=== PATIENT | female | born 1990 | race Caucasian/White ===

== ENCOUNTER → 2019-01-26 08:47 | Outpatient (CLI) | payer OTHER, SELFPAY ==
[2019-01-26 08:58] LABS: Microscopic, Urine URINE MICROSCOPIC (MICROSCOPIC)
[2019-01-26 13:17] LABS: Basophils % 0.3 % (0.1-2.0); Eosinophils # 0.3 K/mm3 (0.0-0.4); Eosinophils % 4.2 % (0.1-12.0); Hematocrit 39.5 % (37.0-47.0); Hemoglobin 13.3 g/dL (12.2-16.2); Lymphocytes # 1.7 K/mm3 (0.7-4.5); Lymphocytes % 23.8 % (10-50); Mean Corpuscular HGB Conc 33.6 g/dL (31.8-35.4); Mean Corpuscular Hemoglobin 28.2 pg (27.0-31.2); Mean Corpuscular Volume 83.9 fl (81-99); Mean Platelet Volume 8.2 fl (7.4-10.4); Monocytes # 0.3 K/mm3 (0.1-1.0); Monocytes % 4.1 % (1.7-9.3); Neutrophils # 4.9 K/mm3 (1.8-7.8); Neutrophils % 67.7 % (37.0-80.0); Platelet Count 307 K/mm3 (142-424); Red Blood Count 4.71 M/mm3 (4.20-5.40); Red Cell Distribution Width 13.6 % (11.5-17.5); White Blood Count 7.3 K/mm3 (4.8-10.8)
[2019-01-26 13:36] LABS: Appearance,Urine CLEAR (Clear); Bilirubin,Urine Negative (Negative); Blood, Urine TRACE-I (Negative); Color,Urine YELLOW (Yellow); Glucose,Urine (UA) Negative (Negative); Ketones,Urine Negative (Negative); Leukocyte Esterase,Urine Negative (Negative); Nitrate,Urine Negative (Negative); PH,Urine 7.5 (5.0-8.5); Protein,Urine Negative (Negative); Specific Gravity, Urine 1.025 (1.005-1.030); Urobilinogen,Urine 0.2 EU/dl (0.2)
[2019-01-26 13:48] LABS: Bacteria,Urine Trace /lpf
[2019-01-26 13:51] LABS: Erythrocyte Sedimentation Rate 8 mm/hr (0-20)
[2019-01-26 13:57] LABS: Alanine Aminotransferase 19 U/L (12-78); Albumin Level 3.6 gm/dL (3.4-5.0); Albumin/Globulin Ratio 1.2 (1.1-1.8); Alkaline Phosphatase 109 U/L (46-116); Anion Gap 14.3 mEq/L (5-15); Aspartate Amino Transferase 12 U/L (15-37); Bilirubin,Total 0.3 mg/dL (0.2-1.0); Blood Urea Nitrogen 12 mg/dL (7-18); C-Reactive Protein 0.4 mg/dL (0.0-0.9); Calcium 8.8 mg/dL (8.5-10.1); Carbon Dioxide 22 mmol/L (21.0-32.0); Chloride 106 mmol/L (98-107); Estimated Glomerular Filt Rate 99 ml/min (>60); GFR (African American) 120 ML/MIN (>60); Globulin 3.1 gm/dl (1.3-3.2); Glucose 98 mg/dL (74-106); Potassium 4.3 mmoL/L (3.5-5.1); Sodium 138 mmol/L (136-145); Total Protein,Serum 6.7 gm/dL (6.4-8.2)
[2019-01-27 21:15] LABS: Anti-DNA (DS) Ab Qn 11 IU/mL (0-9); Complement C3 145 mg/dL (82-167)
== END ==
PROVIDERS: PCP Nurse Practitioner Family; Visit Provider Internal Medicine
DX: M32.9 Systemic lupus erythematosus, unspecified (principal); R53.83 Other fatigue; R76.8 Other specified abnormal immunological findings in serum; Z79.899 Other long term (current) drug therapy
CPT/HCPCS: 36415; 80053; 81001; 84443; 85025; 85651; 86140; 86161; 86225

== ENCOUNTER 2020-01-24 16:22 | Emergency (ER) | payer OTHER, SELFPAY ==
[2020-01-24 16:37] VITALS: BP 133/89; PULSE 89; RESP 19; TEMP 37; O2SAT 100; BMI 472.3
--- NOTE | 2020-01-24 16:53 | HMH.EDUTC ---
[facility] [place] Disposition Clinical Impression: Viral syndrome Pharyngitis Qualifiers: Pharyngitis/tonsillitis etiology: unspecified etiology Qualified Code(s): J02.9 - Acute pharyngitis, unspecified Disposition: Home, Self-Care Condition on Discharge: Good Instructions: Preventing the Spread of Coronavirus Discharge Instructions Additional Instructions: Drink plenty of fluids. Take tylenol for pain or fever. Take the medications as directed. Follow up with your regular doctor. GO TO THE ER FOR ANY WORSENING SYMPTOMS Prescriptions: Azithromycin [Z-Atul 250mg Tab*] 250 mg PO UD DOSE PK #6 tab Transmission Status: Received by [facility] Referrals: Gayle Rasmussen APRN [Primary Care Provider] - Forms: Work/School Release Time of Disposition: 16:55 Medical Decision Making - Medical Records Medical records reviewed: No: I reviewed the patient's medical records. - Marcin Inquiry Pt receiving controlled substance: No Vital Signs: 01/24/20 16:37 01/24/20 17:09 Temperature 98.6 F 98.6 F Temperature Source Oral Oral Pulse Rate 89 Pulse Rate [Right Brachial] 89 Respiratory Rate 19 19 Blood Pressure 133/89 Blood Pressure [Right Arm] 133/89 Blood Pressure Mean [Right Arm] 103 Blood Pressure Source Automatic Cuff Blood Pressure Source [Right Arm] Automatic Cuff Blood Pressure Position Sitting Blood Pressure Position [Right Arm] Sitting 02 Sat by Pulse Oximetry 100 Oxygen Delivery Method Room Air - Lab Data Lab results reviewed: Yes: I reviewed the patient's lab results. Lab Results 01/24/20 16:36: Strep Scn [facility] Negative Orders (Tests/Meds): ORDERS Category Date Time Status Covid-19 Nasal PCR Sendout Alexis Stat Lab 01/24/20 16:30 Received Strep Screen Confirmation Stat Micro 01/24/20 16:[address] [facility] [place] HPI - General Stated complaint: fever,sore throat,SOB Time Seen by Provider: 01/24/20 16:53 Mode of Arrival: Ambulatory Source of Information: Patient Description of Symptoms (Recalled from Triage Doc. by RN): Pt c/o sore throat, headache, and cough x's 2 days and is wanting covid test HEENT Symptoms (Recalled from RN notes): Yes Resp Symptoms (Recalled from RN notes): Yes Skin Symptoms (Recalled from RN notes): No MS Symptoms (Recalled from RN notes): No Functional Status (Recalled from RN notes): wnl - History of Present Illness Provider Complaint: She c/o sore throat, low grade fever, and body aches for the past 2 days. She works in a [employer] so she has been exposed to many people. - Related Data Previous Rx's Medication Instructions Recorded Azithromycin [Z-Taul 250mg Tab*] 250 mg PO UD DOSE PK #6 tab 01/24/20 Allergies Allergy/AdvReac Type Severity Reaction Status Date / Time Codeine Allergy Unknown Uncoded 03/02/17 14:50 - Worker's Comp Is this a Worker's Comp case?: No [facility] History - Hepatitis A Screen Drug use history?: No High risk sexual behaviors?: No History of sexually transmitted infection?: No Currently employed?: No Childcare worker?: No Do you have indoor plumbing?: Yes Do you have electricity?: Yes Attestation statement:: This patient has been screened for Hepatitis A risk factors. I have reviewed the patient's past medical history: Yes - Social History Alcohol Intake: never Occupational Status: other Housing: house ROS Obtained: Yes All systems reviewed & no additional complaints - Constitutional Constitutional: Reports system reviewed and no additional complaints, except as docu - Eyes Eyes: Reports system reviewed and no additional complaints, except as docu - ENT Ears, Nose, Mouth, and Throat: Reports system reviewed and no additional complaints, except as docu - Cardiovascular Cardiovascular: Reports system reviewed and no additional complaints, except as docu - Respiratory Respiratory: Yes system reviewed and no additional complaints, except as docu - Gastrointestinal Gastrointest
[2020-01-24 17:08] LABS: UTC Strep Screen (Rapid) Negative (Negative)
[2020-01-24 17:09] VITALS: BP 133/89; PULSE 89; RESP 19; TEMP 37; O2SAT 100
[2020-01-26 15:45] LABS: Covid-19 Nasal PCR Sendout Lex Not Detected
== END 2020-01-24 17:10 | disposition home or self-care (01) ==
PROVIDERS: Emergency Provider Nurse Practitioner Family; PCP Nurse Practitioner Family
DX: B34.9 Viral infection, unspecified (principal); J02.9 Acute pharyngitis, unspecified
CPT/HCPCS: 87880; 99202; U0004

== ENCOUNTER 2020-11-11 20:06 | Emergency (ER) | payer OTHER, SELFPAY ==
[2020-11-11 21:40] VITALS: BP 143/98; PULSE 87; RESP 18; TEMP 36.9; O2SAT 98; BMI 44.6
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
[2020-11-11 22:45] VITALS: BP 143/98; PULSE 87; RESP 18; TEMP 36.9; O2SAT 98
--- NOTE | 2020-11-12 11:39 | PC.NURSE ---
Attempted to call pt, not a working number, made contact with father and obtained new number. Made contact with patient and notified of positive results
== END 2020-11-11 22:50 | disposition home or self-care (01) ==
PROVIDERS: Emergency Provider Nurse Practitioner; PCP Nurse Practitioner Family
DX: U07.1 COVID-19 (principal); B34.9 Viral infection, unspecified
CPT/HCPCS: 99202; G0463; U0003

== ENCOUNTER 2021-04-27 08:58 | Emergency (ER) | payer OTHER, SELFPAY ==
--- NOTE | 2021-04-27 09:25 | HMH.EDUTC ---
[facility] [place] Disposition Clinical Impression: Viral syndrome, Exposure to COVID-19 virus Pharyngitis Qualifiers: Pharyngitis/tonsillitis etiology: unspecified etiology Qualified Code(s): J02.9 - Acute pharyngitis, unspecified Disposition: Home, Self-Care Condition on Discharge: Good Instructions: DI for Pharyngitis/Tonsillopharyngitis -- Adult, DI for COVID-19 (Suspected or Confirmed ), Preventing the Spread of Coronavirus Discharge Instructions Additional Instructions: Drink plenty of fluids. Take tylenol or ibuprofen for pain or fever. Take the medications as directed. Follow up with your regular doctor. GO TO THE ER FOR ANY WORSENING SYMPTOMS Quarantine until you know the results of your covid-19 test. Notify your school or workplace of your results and follow their instructions regarding return to work/school. Prescriptions: Brompheniramine/Pseudoephed/Dm [Bromfed Dm Cough Syrup] 5 ml PO Q6HP PRN #240 ml PRN Reason: Cough Transmission Status: Received by [facility]/pharmacy #[id number] methylPREDNISolone [Medrol] 4 mg PO DIRECTED 6 Days #21 packet Transmission Status: Received by [facility]/pharmacy #[id number] Azithromycin [Z-Atul 250mg Tab*] 250 mg PO UD DOSE PK #6 tab Transmission Status: Received by [facility]/pharmacy #[id number] Referrals: Gayle Rasmussen APRN [Primary Care Provider] - Forms: Work/School Release Time of Disposition: 10:01 Medical Decision Making - Medical Records Medical records reviewed: No: I reviewed the patient's medical records. - Marcin Inquiry Pt receiving controlled substance: No Vital Signs: 04/27/21 09:41 Temperature 98.8 F Temperature Source Oral Pulse Rate [Left] 114 H Respiratory Rate 20 Blood Pressure [Right Arm] 149/84 H Blood Pressure Mean [Right Arm] 105 02 Sat by Pulse Oximetry 97 - Lab Data Lab results reviewed: Yes: I reviewed the patient's lab results. Orders (Tests/Meds): ORDERS Category Date Time Status Covid-19 Nasal PCR ([facility]) Routine Lab 04/27/21 09:26 Ordered Strep Scrn Group A (Rapid) Stat Lab 04/27/21 09:30 Ordered [facility] [place] HPI - General Stated complaint: congestion, sinus Time Seen by Provider: 04/27/21 09:25 - History of Present Illness Provider Complaint: She states that she began to feel bad yesterday. She felt worse this morning when she woke up. She has had chilling, fever up to 100.5, scratchy sore throat, body aches, a dry cough - Related Data Previous Rx's Medication Instructions Recorded guaiFENesin [Mucinex 600mg tablet] 1 - 2 tab PO BID PRN #20 tab 11/11/20 Azithromycin [Z-Atul 250mg Tab*] 250 mg PO UD DOSE PK #6 tab 04/27/21 Brompheniramine/Pseudoephed/Dm 5 ml PO Q6HP PRN #240 ml 04/27/21 [Bromfed Dm Cough Syrup] methylPREDNISolone [Medrol] 4 mg PO DIRECTED 6 Days #21 04/27/21 packet Allergies Allergy/AdvReac Type Severity Reaction Status Date / Time codeine Allergy Verified 11/11/20 22:02 [facility] History - Hepatitis A Screen Attestation statement:: This patient has been screened for Hepatitis A risk factors. I have reviewed the patient's past medical history: Yes - Social History Alcohol Intake: never Occupational Status: other Housing: house ROS Obtained: Yes All systems reviewed & no additional complaints - Constitutional Constitutional: Reports as per HPI - Eyes Eyes: Denies eye discharge - ENT Ears, Nose, Mouth, and Throat: Reports as per HPI - Cardiovascular Cardiovascular: Denies chest pain - Respiratory Respiratory: Reports chest congestion, Reports cough, Denies dyspnea, Denies stridor, Denies wheezing - Gastrointestinal Gastrointestingal: Reports: nausea. Denies: abdominal pain, diarrhea, vomiting - Musculoskeletal Musculoskeletal: Denies joint pain - Integumentary/Breasts Skin/Breast: Denies rash Physical Exam - General General appearance: alert, in no apparent distress - Head Head exam: atraumatic, normocephalic, normal inspection - Eye Eye exam: Present:
[2021-04-27 09:41] VITALS: BP 149/84; PULSE 114; RESP 20; TEMP 37.1; O2SAT 97; BMI 43.4
[2021-04-27 10:13] VITALS: BP 149/84; PULSE 114; RESP 20; TEMP 37.1
[2021-04-27 11:04] LABS: Strep Scrn Group A (Rapid) Negative (Negative)
[2021-04-27 19:01] LABS: UTC Influenza A Antigen Negative (Negative)
[2021-04-27 19:02] LABS: UTC Influenza B Antigen Negative (Negative)
== END 2021-04-27 10:14 | disposition home or self-care (01) ==
PROVIDERS: Emergency Provider Nurse Practitioner Family; PCP Nurse Practitioner Family
DX: J02.9 Acute pharyngitis, unspecified (principal); B34.9 Viral infection, unspecified; Z20.822 Contact with and (suspected) exposure to COVID-19
CPT/HCPCS: 87430; 87804; 99203; C9803; G0463; U0003; U0005

== ENCOUNTER → 2021-07-23 15:51 | Outpatient (CLI) | payer OTHER, SELFPAY ==
[2021-07-23 17:08] LABS: Adenovirus,PCR Not Detected (NotDetected); Bordetella Pertussis Not Detected (NotDetected); Chlamydophila Pneumoniae, PCR Not Detected (NotDetected); Coronavirus 19, PCR Not Detected (NotDetected); Coronavirus 229E Not Detected (NotDetected); Coronavirus NL63 Not Detected (NotDetected); Coronavirus OC43 Not Detected (NotDetected); Coronovirus HKU1,PCR Not Detected (NotDetected); Human Metapneumovirus Not Detected (NotDetected); Influenza A, PCR Not Detected (NotDetected); Influenza AH1, 2009 Not Detected (NotDetected); Influenza AH1, PCR Not Detected (NotDetected); Influenza AH3,PCR Not Detected (NotDetected); Influenza B, PCR Not Detected (NotDetected); Mycoplasma Pneumoniae, PCR Not Detected (NotDetected); Parainfluenza 1, PCR Not Detected (NotDetected); Parainfluenza 2, PCR Not Detected (NotDetected); Parainfluenza 3, PCR Not Detected (NotDetected); Parainfluenza 4, PCR Not Detected (NotDetected); Respiratory Syncytial Virus Not Detected (NotDetected); Rhinovirus/Enterovirus Not Detected (NotDetected)
== END ==
PROVIDERS: PCP Nurse Practitioner Family; Visit Provider Nurse Practitioner Family
DX: Z20.822 Contact with and (suspected) exposure to COVID-19 (principal); R05.9 Cough, unspecified
CPT/HCPCS: 87581; 87632; 87798; C9803; U0003; U0005

== ENCOUNTER → 2022-01-30 13:36 | Outpatient (CLI) | payer OTHER, SELFPAY ==
[2022-01-30 18:34] LABS: Basophils # 0.1 K/mm3 (0-0.2); Basophils % 0.7 % (0.1-2.0); Eosinophils # 0.5 K/mm3 (0.0-0.4); Eosinophils % 4.5 % (0.1-12.0); Hematocrit 39.8 % (37.0-47.0); Hemoglobin 13.4 g/dL (12.2-16.2); Lymphocytes # 2.8 K/mm3 (0.7-4.5); Lymphocytes % 27.6 % (10-50); Mean Corpuscular HGB Conc 33.6 g/dL (31.8-35.4); Mean Corpuscular Volume 83.4 fl (81-99); Mean Platelet Volume 8.5 fl (7.4-10.4); Monocytes # 0.4 K/mm3 (0.1-1.0); Monocytes % 3.8 % (1.7-9.3); Neutrophils # 6.3 K/mm3 (1.8-7.8); Neutrophils % 63.3 % (37.0-80.0); Platelet Count 323 K/mm3 (142-424); Red Blood Count 4.77 M/mm3 (4.20-5.40); Red Cell Distribution Width 14.7 % (11.5-17.5)
[2022-01-30 19:26] LABS: Alanine Aminotransferase 20 U/L (12-78); Albumin Level 4.2 g/dl (3.5-5.0); Albumin/Globulin Ratio 1.8 (1.1-1.8); Alkaline Phosphatase 123 U/L (38-126); Anion Gap 16.9 mEq/L (5-15); Aspartate Amino Transferase 24 U/L (14-36); Bilirubin,Total 0.3 mg/dl (0.2-1.3); Blood Urea Nitrogen 14 mg/dl (7-17); Calcium 8.9 mg/dl (8.4-10.2); Carbon Dioxide 25 mmol/L (22.0-30.0); Chloride 103 mmol/L (98-107); Chol/HDL Ratio 5.3 (1-3.5); Cholesterol 175 mg/dl (140-200); Estimated Glomerular Filt Rate 83 ml/min (>60); GFR (African American) 101 ML/MIN (>60); Globulin 2.3 g/dL (1.3-3.2); Glucose 85 mg/dl (74-100); HDL Cholesterol 33 mg/dl (40-60); Potassium 3.9 mmoL/L (3.5-5.1); Sodium 141 mmol/L (136-145); Total Protein,Serum 6.5 g/dl (6.3-8.2); Triglycerides 283 mg/dl (30-150); VLDL Cholesterol 57 mg/dL (0-40)
[2022-01-30 19:37] LABS: Direct LDL Cholesterol 105.05 mg/dL (100-129)
[2022-01-30 19:57] LABS: Thyroid Stimulating Hormone 7.78 uIU/mL (0.465-4.68)
== END ==
PROVIDERS: Visit Provider Nurse Practitioner Family
DX: Z00.00 Encounter for general adult medical examination without abnormal findings (principal); I10 Essential (primary) hypertension; E03.9 Hypothyroidism, unspecified
CPT/HCPCS: 80053; 80061; 84443; 85025

== ENCOUNTER → 2022-04-08 14:40 | Outpatient (CLI) | payer OTHER, SELFPAY ==
[2022-04-08 17:57] LABS: Free T4 (Free Thyroxine) 1.79 ng/dl (0.78-2.19)
== END ==
LOC: LAB.DROPOF 04-09 06:27
PROVIDERS: PCP Nurse Practitioner Family; Visit Provider Nurse Practitioner Family
DX: E03.9 Hypothyroidism, unspecified (principal)
CPT/HCPCS: 84439; 84443

== ENCOUNTER 2024-02-16 14:45 | Outpatient (CLI) | payer BC, SELFPAY | END 2024-02-16 23:59 | disposition home or self-care (01) | LOC: LAB.DROPOF 02-17 09:36 | PROVIDERS: PCP Family Medicine; Visit Provider Family Medicine | DX: E03.9 Hypothyroidism, unspecified (principal) | CPT/HCPCS: 84443 ==

== ENCOUNTER 2024-07-26 08:04 | Emergency (ER) | payer BC, SELFPAY ==
[2024-07-26 08:10] VITALS: BP 150/89; PULSE 88; RESP 16; TEMP 36.9; O2SAT 98; BMI 43.4
--- NOTE | 2024-07-26 08:12 | ED_ITS ---
Discharge Plan Disposition Patient Disposition: Home, Self-Care Prescriptions Prescriptions: No Action cetirizine [All Day Allergy (cetirizine)] 10 mg tablet 10 mg PO DAILY PRN (Reason: allergy symptoms) Qty: 60 3RF fluticasone propionate [Flonase Allergy Relief] 50 mcg/actuation spray,suspension 1 spray intranasal DAILY Qty: 16 2RF Rx Instructions: administer into each nostril albuterol sulfate 90 mcg/actuation HFA aerosol inhaler 1 inh inhalation QID Qty: 6.7 2RF meloxicam 15 mg tablet 15 mg PO DAILY 30 Days Qty: 30 2RF hydroxychloroquine 200 mg tablet 200 mg PO DAILY Qty: 30 0RF levothyroxine 112 mcg tablet 224 mcg PO DAILY 30 Days Qty: 60 2RF Referrals Follow up/Referrals: Evan East MD [Primary Care Provider] - See instructions Activity Restrictions/Add. Instructions Additional Instructions/Restrictions: Please come back to the emergency department if you develop numbness, tingling, weakness of your left leg. Please follow-up with the orthopedic doctors at their clinic, their phone number is [phone]. Clinical Impressions Clinical Impression: Acute left ankle pain Instructions Patient Instructions: DI for Ankle Sprain, DI for Ankle Pain Print Language Print Language: [place] Discharge ED Provider: Nabil Mcarthur Adult HPI General Chief complaint: Extremity Injury, Lower Stated complaint: [id number]- pain/swell L ankle, cant bare weight Time Seen by Provider: 07/26/24 08:12 History of Present Illness HPI narrative: Patient is a 33-year-old female past medical history of hypertension, lupus not on anticoagulation presenting for left ankle pain. Patient said that she was walking her kids into daycare this morning and was walking over a rough kinsey patch and felt her ankle go inward. She was able to bear weight on her toes, but unable to bear weight on the back of her foot. She did not hit her head or lose consciousness and is only complaining of left ankle pain. At this time patient denies numbness, tingling, weakness, chest pain, shortness of breath, abdominal pain, nausea or vomiting Related Data Previous Rx's ?Medication ?Instructions ?Recorded albuterol sulfate 90 mcg/actuation 1 inh inhalation QID #6.7 grams 01/05/23 aerosol inhaler meloxicam 15 mg tablet 15 mg PO DAILY plantar fascitis 30 07/21/23 days #30 tabs cetirizine 10 mg tablet (All Day 10 mg PO DAILY PRN allergy 09/09/23 Allergy (cetirizine)) symptoms #60 tabs fluticasone propionate 50 1 spray intranasal DAILY #16 grams 09/09/23 mcg/actuation nasal spray,suspension (Flonase Allergy Relief) hydroxychloroquine 200 mg tablet 200 mg PO DAILY lupus #30 tabs 10/01/23 levothyroxine 112 mcg tablet 224 mcg (2 x 112 mcg) PO DAILY 30 06/08/24 days #60 tabs Allergies Allergy/AdvReac Type Severity Reaction Status Date / Time codeine Allergy Verified 02/16/24 12:49 [facility] Disclaimer: The information contained in this section may have been updated after the patient was seen, as this information can be updated by other users. Medical History Hypothyroidism Hypertension Lupus Surgical History H/O lithotripsy History of History of tonsillectomy Family History Mother Diabetes Hypertension Social History Smoking Status: Never smoker alcohol intake: never substance use type: denies use current occupational status: employed and other Travel in the last 8 weeks?: None household members: spouse and children housing: house Have you lived/traveled outside [place] in past 30 days?: No Contact w/someone who lives/traveled outside US past 30 days?: No Exposure to someone with infectious disease in past 14 days?: No Do you have a fever (greater than 100.4 F or 38 C)?: No Have you tested positive for COVID-19?: No Exposed to someone with COVID-19 in past 14 days?: No Do you have a sore throat?: No Do you have a cough?: No Do you have any weakness?: No Do you have any diarrhea?: No Are you experiencing any unusual bleeding?: No Do you have any muscle aches/pain?: No Do you have any abdominal pain?: No Are you experiencing loss of taste or smell?: No Other Medical History Have you received the Pneumonia Vaccine: No ROS Obtained: Yes All systems reviewed & no additional complaints except as documented Physical Exam General General appearance: alert and in no apparent distress Head Head exam: atraumatic and normocephalic Eye Eye exam: Present normal appearance ENT ENT exam: Present normal exam Neck Neck exam: Present normal inspection Chest Chest inspection: Present normal inspection and symmetric chest wall rise; Absent tenderness Respiratory Respiratory exam: Present normal lung sounds bilaterally; Absent respiratory distress Cardiovascular Cardiovascular exam: Present regular rate Abdominal Exam Abdominal exam: Present soft; Absent distention, tenderness, guarding or rebound Extremities Exam Extremities exam: Present tenderness (Left lateral ankle, no forefoot tenderness, toes nontender, proximal joints nontender and has full range of motion) and normal capillary refill Neurological Exam Neurological exam: Present alert and oriented X3; Absent motor sensory deficit Medical Decision Making Medical Records Screening: Per USPSTF and CDC recommendations, given the prevalence of disease in our region, it is our hospital?s policy to screen for HIV and viral Hepatitis for all patients aged 18 and over and those with ongoing risk factors. Marcin Inquiry Pt receiving controlled substance: No Vital Signs: 07/26/24 08:10 07/26/24 08:54 07/26/24 09:31 Temperature 98.4 F Temperature Source Oral Pulse Rate 84 Pulse Rate [Right Radial] 88 Respiratory Rate 16 Blood Pressure 146/80 H 121/78 Blood Pressure [Right Arm] 150/89 H Blood Pressure Mean 94 Blood Pressure Mean [Right Arm] 109 Blood Pressure Source Blood Pressure Source [Right Arm] Automatic Cuff Blood Pressure Position Blood Pressure Position [Right Arm] Sitting 02 Sat by Pulse Oximetry 98 99 Oxygen Delivery Method Room Air 07/26/24 10:27 07/26/24 10:31 07/26/24 10:32 Temperature 98.6 F Temperature Source Oral Pulse Rate 85 66 82 Pulse Rate [Right Radial] Respiratory Rate 15 Blood Pressure 128/84 125/75 119/79 Blood Pressure [Right Arm] Blood Pressure Mean Blood Pressure Mean [Right Arm] Blood Pressure Source Automatic Cuff Blood Pressure Source [Right Arm] Blood Pressure Position Sitting Blood Pressure Position [Right Arm] 02 Sat by Pulse Oximetry 100 96 Oxygen Delivery Method Room Air Orders (Tests/Meds): ED MEDICATIONS Discontinued Medications Generic Name Dose Route Start Last Admin Trade Name Freq PRN Reason Stop Dose Admin Acetaminophen 1,000 mg 07/26/24 08:43 07/26/24 08:53 Acetaminophen 500mg Tab PO 07/26/24 08:44 1,000 mg ONCE ONE Administration Ibuprofen 600 mg 07/26/24 08:44 07/26/24 08:53 Ibuprofen 600 Mg Tablet PO 07/26/24 08:45 600 mg ONCE ONE Administration Methocarbamol 500 mg 07/26/24 09:00 07/26/24 08:53 Methocarbamol 500mg Tablet PO 08/25/24 08:59 500 mg BID SIDDHARTHA Administration ORDERS Category Date Time Status Ankle XR - Left minimum 3 Views [XR ankle LT min 3V] Exams 07/26/24 08:43 Completed Stat Foot XR left 2 views [XR foot LT 2V] Stat Exams 07/26/24 08:43 Completed Medical Decision Narrative: In summary, this 33-year-old female presents to the emergency department today with left ankle pain. On initial evaluation patient is hemodynamically stable, well-appearing and in no acute distress. She has swelling to her lateral ankle with tenderness to palpation otherwise intact. She has mildly decreased range of motion due to pain but is able to bear weight on the distal aspect of her foot while standing. Will get x-rays and pain medication. Differential diagnosis includes but is not limited to fracture, dislocation, ligamentous injury. XR personally interpreted demonstrates no obvious dislocation or fracture. On reassessment pain better controlled in no acute distress, patient given crutches and an Neville wrap and given the number to orthopedic follow-up clinic. Patient discharged in stable condition, all questions answered, return precautions given.. Of note, social determinants of health include poor health literacy. Critical Care Critical Care Time Critical Care Time: No
--- NOTE | 2024-07-26 08:43 | XR_ITS ---
FINAL REPORT CLINICAL HISTORY: Left ankle pain, fall COMPARISON: None FINDINGS: LEFT FOOT Two views of the left foot were obtained. There is no acute fracture or dislocation. The joint spaces are well-preserved. There is no acute soft tissue abnormality. IMPRESSION: No acute abnormality identified. Reviewed, Interpreted and Dictated by Yaw Adame MD Transcribed by Alyssa Coughlin Authenticated and [facility]
--- NOTE | 2024-07-26 08:43 | XR_ITS ---
FINAL REPORT CLINICAL HISTORY: Lateral ankle pain, fall COMPARISON: None FINDINGS: LEFT ANKLE 3 views of the left ankle were obtained. There is no acute fracture or dislocation. The mortise is intact. Visualized joint spaces are normally aligned. There is moderate soft tissue edema about the ankle, particularly laterally. There is a small plantar spur. IMPRESSION: Soft tissue edema without acute bony abnormality. Reviewed, Interpreted and Dictated by Yaw Adame MD Transcribed by Alyssa Coughlin Authenticated and [facility]
[2024-07-26] MEDS: IBUPROFEN 600 MG TABLET PO (08:53)
[2024-07-26] MEDS: METHOCARBAMOL 500MG TABLET 500 MG PO (08:53)
[2024-07-26] MEDS: ACETAMINOPHEN 500MG TAB 1000 MG PO (08:53)
[2024-07-26 08:54] VITALS: BP 146/80; PULSE 84; O2SAT 99
[2024-07-26 09:31] VITALS: BP 121/78
[2024-07-26 10:27] VITALS: BP 128/84; PULSE 85; O2SAT 100
[2024-07-26 10:31] VITALS: BP 125/75; PULSE 66; RESP 15; TEMP 37; O2SAT 99
[2024-07-26 10:32] VITALS: BP 119/79; PULSE 82; O2SAT 96
--- NOTE | 2024-07-26 10:38 | PC.NURSE ---
Took patient to the restroom to void
== END 2024-07-26 10:33 | disposition home or self-care (01) ==
PROVIDERS: Emergency Provider Student in an Organized Health Care Education/Training Program; PCP Family Medicine
DX: M25.572 Pain in left ankle and joints of left foot (principal); X50.1XXA Overexertion from prolonged static or awkward postures, initial encounter
CPT/HCPCS: 73610; 73620; 99284

== ENCOUNTER 2024-11-15 08:57 | Outpatient (CLI) | payer BC, SELFPAY ==
--- OUTSIDE RECORDS SUMMARY | 2024-10-06 10:30 | XMS_ITS | Encounter Summary ---
Author Organization [facility] Address [address] [place] [address] Care Team Providers Care Inverter And Clipper Name Role Phone Evan East MD Primary Care Provider [phone] Reason for Visit * Diagnostic Imaging (Routine) - Closed Specialty Diagnoses / Procedures Referred By Contact Referred To Contact Obstetrics and Gynecology Diagnoses Abnormal uterine bleeding (AUB) Procedures US Non-ob Transvaginal Matt Charles MD [address] [address] Phone: tel: fax: [facility] [address] [address] Phone: tel: fax: Referral ID Status Reason Start Date Expiration Date Visits Re quested Visits Authorized [id number] Closed 10/03/2024 01/02/2026 1 1 Encounter Details Date Type Department Care Team (Latest Contact Info) Description 10/06/2024 10:30 AM EDT Ancillary Procedure [facility] [address] [address] Abnormal uterine bleeding (AUB) Social History Tobacco Use Types Packs/Day Years Used Date Smoking Tobacco: Never Smokeless Tobacco: Never Alcohol Use Standard Drinks/Week Comments Never 0 (1 standard drink = 0.6 oz pur e alcohol) AUDIT-C Answer Date Recorded Frequency of Alcohol Consumption Never 05/23/2018 Average Number of Drinks Not on file 019 Frequency of Binge Drinking Not on file 05/13 Comments No Sex and Gender Information Value Date Recorded Sex Assigned at Not on file Legal Sex Female 1:45 PM EDT Gender Identity Not on file Sexual Orientation Not on file documented as of this encounter Plan of Treatment Upcoming Encounters Date Type Department Care Team (Late st Contact Info) Description 05/25/2025 10:30 AM EDT Ancillary Procedure [facility] [address] [facility] [address] [place] [phone] 05/25/2025 10:50 AM EDT Office Visit [facility] [address] [facility] [address] [place] [address] Matt Charles MD [address] [facility] [address] [place] [address] documented as of this encounter Procedures Procedure Name Priority Date/Time Associated Diagnosis Comments US NON-OB TRANSVAGINAL Routine 10/06/2024 10:23 AM EDT Abnormal uterine bleeding (AUB) documented in this encounter Results * US Non-ob Transvaginal (10/06/2024 10:23 AM EDT) Anatomical Region Laterality Modality Body Ultrasound 10/06/2024 10:0 6 AM EDT Narrative 10/06/2024 7:10 PM EDT PAT NAME: KATERINA WATKINS MED REC#: [id number] DA: [id number] PAT GEND: F PAT TYPE: O EXAM IAN: [id number] REF PHYS MATT CHARLES Indication ======== AUB Comparison Studies There are no relevant prior studies to which this study is being compared History ====== Previous Outcomes 1 Para 0 Method ======= Voluson E6, Transvaginal ultrasound examination, 3D ultrasound examination. View: Adequate view Uterus ====== Uterus: Visualized Uterus position: Anteverted Description of uterine malformations: none Myometrium: Homogeneous Endometrium: Uniform Cervix details: Normal Uterus long 103 mm Uterus ap 75 mm Uterus tr 70 mm Uterus Vol 282.8 cm Endometrial thickness, total 3.9 mm Uterine fibroid D1 43.4 mm Uterine fibroid D2 47.7 mm Uterine fibroid D3 42.2 mm Uterine fibroid vol 45.817 cm Uterine fibroids findings: Intramural Uterine fibroid D1 33.0 mm Uterine fibroid D2 26.6 mm Uterine fibroid D3 25.8 mm Uterine fibroid vol 11.829 cm Uterine fibroids findings: Posterior Right Ovary Rt ovary: Visualized Rt ovary D1 29.7 mm Rt ovary D2 28.0 mm Rt ovary D3 21.6 mm Rt ovary Vol 9.4 cm Left Ovary ========= Lt ovary: Visualized Lt ovary D1 42.1 mm Lt ovary D2 22.4 mm Lt ovary D3 23.20 mm Lt ovary Vol 11.5 cm Lt ovarian cyst D1 21.0 mm Lt ovarian cyst D2 16.8 mm Lt ovarian cyst D3 16.5 mm Lt ovarian cyst mean 18.1 mm Lt ovarian cyst vol 3.048 cm Lt ovarian cyst findings: Simple cyst Cul de Sac Normal. No free fluid visualized Impression Uterus anteverted normal size. Endometrial thickness 3.9. 2 fibroids and uterus. 4.3 and 4.2 cm intramural and a another 3.3 x 2.5 cm posterior. Ovaries normal. 2.1 x 1.6 cm simple cyst left ovary. Recommendation Follow-up as clinically indicated. Sanitarian: Shona Marcila RDMS Physician: Matt Charles II, MD, FACOG Electronically signed by: Matt Charles II, MD, FACOG at: 19:10 Procedure Note Matt Charles MD - 10/06/2024 PAT NAME: KATERINA WATKINS [facility] REC#: [id number] DA: [id number] PAT GEND: F PAT TYPE: O EXAM IAN: [id number] REF PHYS MATT CHARLES Indication ======== AUB Comparison Studies There are no relevant prior studies to which this study is beingcompared History ====== Previous Outcomes Gravida1 Para0 Method ======= [place]on E6, Transvaginal ultrasound examination, 3D ultrasoundexamination. View: Adequate view Uterus ====== Uterus:Visualized Uterus position:Anteverted Description of uterine malformations:none Myometrium:Homogeneous Endometrium:Uniform Cervix details:Normal Uterus euzl775 mm Uterus ap75 mm Uterus tr70 mm Uterus Ych930.8 cm Endometrial thickness, total3.9 mm Uterine fibroid D143.4 mm Uterine fibroid D247.7 mm Uterine fibroid D342.2 mm Uterine fibroid vol45.817 cm Uterine fibroids findings:Intramural Uterine fibroid D133.0 mm Uterine fibroid D226.6 mm Uterine fibroid D325.8 mm Uterine fibroid vol11.829 cm Uterine fibroids findings:Posterior Right Ovary Rt ovary:Visualized Rt ovary D129.7 mm Rt ovary D228.0 mm Rt ovary D321.6 mm Rt ovary Vol9.4 cm Left Ovary ========= Lt ovary:Visualized Lt ovary D142.1 mm Lt ovary D222.4 mm Lt ovary D323.20 mm Lt ovary Vol11.5 cm Lt ovarian cyst D121.0 mm Lt ovarian cyst D216.8 mm Lt ovarian cyst D316.5 mm Lt ovarian cyst mean18.1 mm Lt ovarian cyst vol3.048 cm Lt ovarian cyst findings:Simple cyst [place] Sac Normal. No free fluid visualized Impression Uterus anteverted normal size. Endometrial thickness 3.9. 2 fibroids anduterus. 4.3 and 4.2 cm intramural and a another 3.3 x 2.5 cm posterior.Ovaries normal. 2.1 x 1.6 cm simple cyst left ovary. Recommendation Follow-up as clinically indicated. Sanitarian: Shnoa Marcial RDMS Physician: Matt Charles II, MD, FACOG Electronically signed by: Matt Charles II, MD, MICHAELOG at: 9:10 us Matt Charles MD [facility] US ORDERABLES Final Result documented in this encounter Visit Diagnoses Diagnosis Abnormal uterine bleeding (AUB) documented in this encounter Care Teams Inverter And Clipper Relationship Specialty Start Date End Date Evan East MD [address] [place] [address] [place] [address] PCP - General Family Medicine 11/16/23 documented as of this encounter
--- OUTSIDE RECORDS SUMMARY | 2024-10-06 10:40 | XMS_ITS | Encounter Summary ---
Author Organization [facility] Address [address] [place] [address] Care Team Providers Care Manager Of Change Name Role Phone Evan East MD Primary Care Provider [phone] Reason for Referral * Diagnostic Imaging (Routine) - Authorized Specialty Diagnoses / Procedures Referred By Contact Referred To Contact Obstetrics and Gynecology Diagnoses Intramural leiomyoma of uterus Procedures US Non-ob Transvaginal Matt Murphy MD [address] [address] Phone: tel: fax: [facility] [address] [address] Phone: tel: fax: Referral ID Status Reason Start Date Expiration Date V isits Requested Visits Authorized [id number] Authorized 10/06/2024 01/05/2026 1 1 Reason for Visit * Reason Comments Gynecologic Exam Menstrual Problem Encounter Details Date Type Department Care Team (Late st Contact Info) Description 10/06/2024 10:40 AM EDT Office Visit [facility] [facility] [address] [place] [phone] Matt Murphy MD [address] [place] [id number] Intramural leiomyoma of uterus (Primary Dx); Women's annual routine gynecological examination; Abnormal uterine bleeding (AUB) Social History Tobacco Use Types Packs/Day Years Used Date Smoking Tobacco: Never Smokeless Tobacco: Never Tobacco Cessation:Counseling Given: Not Answered Alcohol Use Standard Drinks/Week Comments Never 0 [...] on file documented as of this encounter Last Filed Vital Signs Vital Sign Reading Time Taken Comments Blood Pressure 128/84 10/06/2024 11:17 AM EDT Pulse - - Temperature - - Respiratory Rate - - Oxygen Saturation - - Inhaled Oxygen Concentration - - Weight 108 kg (237 lb 9.6 oz) 10/06/2024 11:17 A M EDT Height 154.9 cm (5' 1 ) 10/06/2024 11:17 AM EDT Body Mass Index 44.89 10/06/2024 11:17 AM EDT documented in this encounter Progress Notes * Claire Medina RN - 10/06/2024 10:40 AM EDTAddended by: CLAIRE MEDINA on: 10/06/2024 04:42 PM Modules accepted: Orders * Matt Murphy MD - 10/06/2024 10:40 AM EDT Images from the original note were not included. Gynecologic Annual Exam Note Gynecologic Exam and Menstrual Problem Subjective HPI Katerina Watkins is a 33 y.o. female who presents for annual well woman exam as a established patient. There were no changes to her medical or surgical history since her last visit.. Patient's last menstrual period was 09/01/2024 (approximate). She reports having irregular periods that occur every 1-3 months. Periods usually last 3 days, her current period has been about 5 weeks. The flow is heavy with golf ball sized clots. She denies dysmenorrhea. Marital Status: . She is sexually active. She has not had new partners.. STD testing recommendations have been explained to thepatient and she does not desire STD testing. US done today: Yes. Findings showed fibroid 4x2 and 3 x 2 cm . The patient would like to discuss the following complaints today: She reports lower abdominal tenderness with palpation. She sometimes has pain and bleeding with intercourse. Her current period started around 09/01/24 and has been bleeding for about 5 weeks consistently. Flow is heavy with large blood clots. She reports feeling fatigue and lightheadedness. Bleeding stopped yesterday, has not had any bleeding today. 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 Results: negative. HPV: negative. Last Completed Pap Smear Upcoming PAP SMEAR (Every 3 Years) Next due on 06/17/2025 06/17/2022 LIQUID-BASED PAP SMEAR WITH HPV GENOTYPING REGARDLESS OF INTERPRETATION (JORGE,COR,MAD) History of abnormal Pap smear: no Gardasil status:completed Family history of uterine, colon, breast, or ovarian cancer: no Performs monthly Self-Breast Exam: yes Exercises Regularly:no Feelings of Anxiety or Depression: no Tobacco Usage?: No Current Outpatient Medications: albuterol sulfate HFA 108 (90 Base) MCG/ACT inhaler, Inhale 2 puffs Every 4 (Four) Hours As Needed for Wheezing., Disp: , Rfl: hydroxychloroquine (PLAQUENIL) 200 MG tablet, Take 1 tablet by mouth 2 (Two) Times a Day., Disp: 180 tablet, Rfl: 1 levothyroxine (SYNTHROID, LEVOTHROID) 200 MCG tablet, Take 1 tablet by mouth Daily., Disp: , Rfl: meloxicam (MOBIC) 15 MG tablet, Take 1 tablet by mouth Daily., Disp: 90 tablet, Rfl: 1 medroxyPROGESTERone (Provera) 10 MG tablet, Take 1 tablet by mouth Daily., Disp: 30 tablet, Rfl: 6 Patient denies the need for medication refills today. OB History 3 Para 1 Term AB 2 Living 1 SAB 2 IAB Ectopic Molar Multiple Live Births Health Maintenance Topic Date Due ANNUAL PHYSICAL Never done Annual Gynecologic Pelvic and Breast Exam 06/19/2023 COVID-19 Vaccine (2023- season) Never done INFLUENZA VACCINE 12/13/2024 PAP SMEAR 06/17/2025 TDAP/TD VACCINES (2 - Td or Tdap) 06/04/2030 HEPATITIS C SCREENING Completed Pneumococcal Vaccine 0-49 Aged Out Past Medical History: Diagnosis Date JADEN positive Anemia Cardiomyopathy Disease of thyroid gland hypothyroidism High risk medication use Hypothyroidism Kidney stone Lupus Lupus anticoagulant positive Recurrent loss, antepartum condition or complication SLE (systemic lupus erythematosus) Past Surgical History: Procedure Laterality Date SECTION 05/17/2014 CYSTOSCOPY W/ LASER LITHOTRIPSY TONSILLECTOMY The additional following portions of the patient's history were reviewed and updated as appropriate: allergies and current medications. Review of Systems Constitutional: Negative. HENT: Negative. Eyes: Negative. Respiratory: Negative. Cardiovascular: Negative. Gastrointestinal: Negative. Endocrine: Negative. Genitourinary: Positive for menstrual problem and vaginal bleeding. Musculoskeletal: Negative. Skin: Negative. Allergic/Immunologic: Negative. Neurological: Negative. Hematological: Negative. Psychiatric/Behavioral: Negative. I have reviewed and agree with the HPI, ROS, and historical information as entered above. Matt Murphy MD Objective BP 128/84 Ht 154.9 cm (61 ) Wt 108 kg (237 lb 9.6 oz) LMP 09/01/2024 (Approximate) BMI 44.89 kg/m?? Physical Exam Vitals and nursing note reviewed. Exam conducted with a manager housekeeping present. Constitutional: Appearance: She is well-developed. HENT: Head: Normocephalic and atraumatic. Neck: Thyroid: No thyroid mass or thyromegaly. Cardiovascular: Rate and Rhythm: Normal rate and regular rhythm. Heart sounds: No murmur heard. Pulmonary: Effort: Pulmonary effort is normal. No retractions. Breath sounds: Normal breath sounds. No wheezing, rhonchi or rales. Chest: Chest wall: No mass or tenderness. Breasts: Right: Normal. No mass, nipple discharge, skin change or tenderness. Left: Normal. No mass, nipple discharge, skin change or tenderness. Abdominal: General: Bowel sounds are normal. Palpations: Abdomen is soft. Abdomen is not rigid. There is no mass. Tenderness: There is no abdominal tenderness. There is no guarding. Hernia: No hernia is present. There is no hernia in the left inguinal area. Genitourinary: Labia: Right: No rash, tenderness or lesion. Left: No rash, tenderness or lesion. Vagina: Normal. No vaginal discharge or lesions. Cervix: No cervical motion tenderness, discharge, lesion or cervical bleeding. Uterus: Normal. Not enlarged, not fixed and not tender. Adnexa: Right: No mass or tenderness. Left: No mass or tenderness. Rectum: No external hemorrhoid. Musculoskeletal: Cervical back: Normal range of motion. No muscular tenderness. Neurological: Mental Status: She is alert and oriented to person, place, and time. Psychiatric: Behavior: Behavior normal. Assessment and Plan Problem List Items Addressed This Visit None Visit Diagnoses Intramural leiomyoma of uterus - Primary Relevant Orders US Non-ob Transvaginal Women's annual routine gynecological examination Abnormal uterine bleeding (AUB) Relevant Medications medroxyPROGESTERone (Provera) 10 MG tablet Will recheck fibroids in 6 mo as was small 2 years ago, start Provera RUG CLEANER HAND annual well woman exam. Reviewed pap guidelines. Recommended use of Vitamin D replacement and getting adequate calcium in her diet. (1500mg) Reviewed monthly self breast exams. Instructed to call with lumps, pain, or breast discharge. Reviewed BMI and weight loss as preventative health measures. RTC in 1 year or PRN with problems Return in about 31 weeks (around 05/11/2025) for us then. aMtt Murphy MD 10/06/2024 documented in this encounter Plan of Treatment Upcoming Encounters Date Type Department Care Team (Late st Contact Info) Description 05/25/2025 10:30 AM EDT Ancillary Procedure [facility] O[facility] [address] [email or web address] [address] [place] [address] 05/25/2025 10:50 AM EDT Office Visit [facility] OBGYN [address] [facility] [address] [place] [address] Matt Murphy MD [address] [facility] [[email or web address] [address] [place] [address] Scheduled Orders Name Type Priority Associated Diagnoses Orde r Schedule US Non-ob Transvaginal Imaging Routine Intramural leiomyoma of uterus Expected: 05/11/2025, Expires: 10/06/2025 documented as of this encounter Procedures Procedure Name Priority Date/Time Associated Diagnosis Comments LIQUID-BASED PAP SMEAR WITH HPV GENOTYPING IF ASCUS, [facility] (JORGE,COR,MAD) Routine 10/06/2024 4:43 PM EDT Women's annual routine gynecological examination documented in this encounter Results * LIQUID-BASED PAP SMEAR WITH HPV GENOTYPING IF ASCUS (JORGE,COR,MAD) (10/06/2024 4:43 PM EDT) Reference Lab Report [facility] [address] [place] [address] or [phone] Sachin Mcintyre M.D., Pier Master PATIENT NAME LABORATORY NO. [address] KATERINA WATKINS. [id number] AGE SEX SSN CLIENT REF # [id number] 33 1990 F [id number] [id number] REQUESTING Rohit [place] [address] MATT MURPHY DATE COLLECTED DATE RECEIVED DATE REPORTED 10/06/2024 10/06/2024 10/07/2024 ThinPrep Pap with Hologic Genius Imaging DIAGNOSIS: Negative for intraepithelial lesion or malignancy Multiple factors can influence accuracy of Pap tests; therefore, screening at regular intervals is necessary for early cancer detection. SPECIMEN ADEQUACY: SATISFACTORY FOR EVALUATION Transformation zone is present. SOURCE OF SPECIMEN: CERVICAL SLIDES: 1 CLINICAL HISTORY: Women's annual routine gynecological examination Abnormal uterine bleeding WHEEL FITTER: PATO PANDEY (ASCP) CPT CODES: 66040 10/07/2024 8:55 AM EDT [facility] ThinPrep Vial Cervix uteri structure / Unknown Collection / Unknown 10/06/2024 4:43 PM EDT 10/06/2024 4:43 PM EDT us Matt Murphy MD PATHOLOGY/CYTOLOGY ORDERABLES F inal Result [facility]
[address] [place] [address], [place] [phone] documented in this encounter Visit Diagnoses Diagnosis Intramural leiomyoma of uterus- Primary Women's annual routine gynecological examination Abnormal uterine bleeding (AUB) documented in this encounter Care Teams Manager Of Change Relationship Specialty Start Date End Date Evan East MD [address] [place] [address] PCP - General Family Medicine 11/16/23 documented as of this encounter
[2024-11-15 19:50] LABS: Hematocrit 35.3 % (37.0-47.0); Hemoglobin 10.0 g/dL (12.2-16.2); Immature Granulocytes % 0.3 %; Mean Corpuscular HGB Conc 28.3 g/dL (31.8-35.4); Mean Corpuscular Hemoglobin 20.9 pg (27.0-31.2); Mean Corpuscular Volume 73.8 fl (81-99); Nucleated Red Blood Cells % 0 %; Platelet Count 348 K/mm3 (142-424); Red Blood Count 4.78 M/mm3 (4.20-5.40); Red Cell Distribution Width-SD 46.1 fL; White Blood Count 7.2 K/mm3 (4.8-10.8)
[2024-11-15 20:33] LABS: Albumin Level 4.0 g/dl (3.5-5.0); Chloride 111 mmol/L (98-107); Potassium 4.5 mmoL/L (3.5-5.1); Sodium 139 mmol/L (136-145)
[2024-11-15 20:36] LABS: Alanine Aminotransferase 18 U/L (12-78); Albumin/Globulin Ratio 1.6 (1.1-1.8); Alkaline Phosphatase 86 U/L (38-126); Anion Gap 8.5 mEq/L (5-15); Aspartate Amino Transferase 23 U/L (14-36); Bilirubin,Total 0.4 mg/dl (0.2-1.3); Blood Urea Nitrogen 20 mg/dl (7-17); Calcium 8.8 mg/dl (8.4-10.2); Carbon Dioxide 24 mmol/L (22.0-30.0); Cholesterol 159 mg/dl (140-200); Creatinine,Serum 0.70 mg/dl (0.52-1.04); Estimated Glomerular Filt Rate 95 ml/min (>60); GFR (African American) 115 ML/MIN (>60); Globulin 2.5 g/dL (1.3-3.2); Glucose 93 mg/dl (74-100); Iron 36 ug/dL (37-170); Total Protein,Serum 6.5 g/dl (6.3-8.2); Triglycerides 78 mg/dl (30-150)
[2024-11-15 20:37] LABS: HDL Cholesterol 33 mg/dl (40-60)
[2024-11-15 20:43] LABS: Total Iron Binding Capacity 418 ug/dL (265-497)
[2024-11-15 20:54] LABS: Triiodothryronine (T3) Uptake 39 % (23.5-40.5)
[2024-11-15 20:55] LABS: Free Thyroxine Index 4.8 ug/dL (5.93-13.13); T4 (Thyroxine) 12.2 ug/dl (5.53-11.0)
[2024-11-15 21:07] LABS: Hemoglobin A1C 5.3 % (4.0-6.0)
[2024-11-15 21:08] LABS: Thyroid Stimulating Hormone 2.95 uIU/mL (0.465-4.68)
[2024-11-15 21:27] LABS: Hepatitis C Ab Qual. W/ RFX NEGATIVE (Negative)
--- OUTSIDE RECORDS SUMMARY | 2024-11-17 08:40 | XMS_ITS | Encounter Summary ---
Author Organization [facility] Address [address] 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 Sending to clinic for review. Additional info: No CMP/BMP in last 12 mo. Please review. 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
--- OUTSIDE RECORDS SUMMARY | 2024-11-17 08:41 | XMS_ITS | Clinical Summary ---
Author Organization [facility] Address [address] [place] [address] Care Team Providers Care Computer Tech Name Role Phone Evan East MD Primary Care Provider [phone]- [phone] Allergies Active Allergy Reactions Criticality Noted Date Comments Codeine Nausea And Vomiting Low 05/23/2018 Childhood allergy. Medications levothyroxine (SYNTHROID, LEVOTHROID) 200 MCG tablet Take 1 tablet by mouth Daily. Active albuterol sulfate HFA 108 (90 Base) MCG/ACT inhaler Inhale 2 puffs Every 4 (Four) Hours As Needed for Wheezing. Active hydroxychloroqui ne (PLAQUENIL) 200 MG tabletIndication s:Lupus,Encounte r for long-term (current) use of high-risk medication Take 1 tablet by mouth 2 (Two) Times a Day. 180 tablet 1 11/16/2023 Active meloxicam (MOBIC) 15 MG tabletIndication s:Lupus,Encounte r for long-term (current) use of NSAIDs Take 1 tablet by mouth Daily. 90 tablet 1 11/16/2023 Active medroxyPROGESTER one (Provera) 10 MG tabletIndication s:Abnormal uterine bleeding (AUB) Take 1 tablet by mouth Daily. 30 tablet 6 10/06/2024 Active Active Problems Problem Noted Date Diagnosed Date Encounter for long-term (cur rent) use of high-risk medication 11/11/2023 Assessment & Plan (11/11/2023 10:31 AM EDT): Continue Plaquenil. Well tolerated and effective. Labs today. We have discussed the side effects of hydroxychloroquine including but not limited to GI upset, rash, photosensitivity, Hematologic and liver abnormalities and ocular abnormalities and need for frequent eye exam for toxicity monitoring, Encounter for long-term (current) use of NSAIDs 11/11/2023 Assessment & Plan (11/11/2023 10:32 AM EDT): Risks of NSAIDs discussed including GI upset, GI bleeding, renal and hepatic risks and the risks of cardiovascular disease and stroke. Warned patient not to take with other NSAIDs including OTC NSAIDs Miscarriage 11/11/2023 Assessment & Plan (11/11/2023 10:35 AM EDT): hx of 1st trimester miscarriage 2018 +lupus anticoagulant. She has seen high-risk OB. They recommend follow-up if she becomes again Hypothyroidism 10/04/2023 Assessment & Plan (11/16/2023 10:05 AM EDT): On levothyroxine and currently stable Anemia 10/04/2023 JADEN positive 10/04/2023 Assessment & Plan (11/11/2023 10:33 AM EDT): neg by ifa; neg nicole Positive lupus anticoagulant. Cardiomyopathy 10/04/2023 Assessment & Plan (11/11/2023 10:34 AM EDT): History of Hypertrophic. Follows with Dr. Pena Hypertension 01/06/2023 Irregular menses 06/17/2022 Lupus 07/07/2018 Assessment & Plan (11/16/2023 10:05 AM EDT): vs sero neg RA; elevated crp; son born may 2014 lupus and ra run in her family +JADEN, +LA, +SSA oral ulcers, arthritis, malar rash neg jaden by ifa Inflammatory arthritis since 2007; Current: plaquenil start 2008-monitoring with [facility] Overall doing well in improved on Plaquenil BID. Low disease activity. She does occasionally have oral ulcers. Could trial colchicine if persistent. Plaquenil refill provided. Well tolerated. Plaquenil eye exam yearly recommended with Dr[facility] Continue meloxicam as needed for joint pains The patient is doing satisfactorily on the current medical therapy. Check labs today RTC 4-6 months Maternal morbid obesity, antepartum 07/07/2018 Previous section 07/07/2018 Encounters Date Type Department Care Team Description 10/06/2024 10:40 AM EDT Office Visit [facility] [address] [place] [address] Dimas Charles MD Intramural leiomyoma of uterus (Primary Dx); Women's annual routine gynecological examination; Abnormal uterine bleeding (AUB) 10/06/2024 10:30 AM EDT Ancillary Procedure [facility] [address] [place] [address] Abnormal uterine bleeding (AUB) 10/06/2024 Travel from Last 3 Months Immunizations Immunization Administration Dates Next Due Influenza, Unspecified 12/18/2019 Family History Medical History Relation Name Comments Arthritis Maternal Grandfather Diabetes Mother [place] Breast cancer Neg Hx Colon cancer Neg Hx Ovarian cancer Neg Hx Uterine cancer Neg Hx Relation Name Status Comments Maternal Grandfather Mother [place] Social History Tobacco Use Types Packs/Day Years [...] on file Sexual Orientation Not on file Last Filed Vital Signs Vital Sign Reading Time Taken Comments Blood Pressure 128/84 10/06/2024 11:17 AM EDT Pulse 116 11/16/2023 9:50 AM EDT Temperature 36.6 C (97.9 F) 11/16/2023 9:50 AM EDT Respiratory Rate 18 05/23/2018 10:44 AM EDT Oxygen Saturation 98% 05/23/2018 10:44 AM EDT Inhaled Oxygen Concentration - - Weight 108 kg (237 lb 9.6 oz) 10/06/2024 11:17 A M EDT Height 154.9 cm (5' 1 ) 10/06/2024 11:17 AM EDT Body Mass Index 44.89 10/06/2024 11:17 AM EDT Plan of Treatment Upcoming Encounters Date Type Department Care Team (Late st Contact Info) Description 05/25/2025 10:30 AM EDT Ancillary Procedure [facility] [address] [place] [address] [place] [phone] 05/25/2025 10:50 AM EDT Office Visit [facility] [address] [place] [address] Dimas Charles MD [address] [place] [address] Health Maintenance Due Date Last Done Comments ANNUAL PHYSICAL 07/07/2018 COVID-19 Vaccine (2023-2 5 season) 2024 INFLUENZA VACCINE 12/13/2024 06/04/2020, 12/18/2019 Annual Gynecologic Pelvic an d Breast Exam 10/07/2025 10/06/2024 PAP SMEAR 10/07/2027 10/06/2024, 06/17/2022 TDAP/TD VACCINES (2 - Td or Tdap) 06/04/2030 06/04/2020 HEPATITIS C SCREENING Completed 02/10/2024 Pneumococcal Vaccine 0-49 Aged Out No longer eligible based on patient's age to complete this topic Procedures Procedure Name Priority Date/Time Associated Diagnosis Comments LIQUID-BASED PAP SMEAR WITH HPV GENOTYPING IF ASCUS, [facility] (JORGE,COR,MAD) Routine 10/06/2024 4:43 PM EDT Women's annual routine gynecological examination US NON-OB TRANSVAGINAL Routine 10/06/2024 10:23 AM EDT Abnormal uterine bleeding (AUB) from Last 3 Months Results * LIQUID-BASED PAP SMEAR WITH HPV GENOTYPING IF ASCUS (JORGE,COR,MAD) (10/06/2024 4:43 PM EDT) Reference Lab Report [facility] [address] [place] [address] or [phone] Sachin Mcintyre M.D., Apprentice Funeral Director PATIENT NAME LAB[facility]ATORY NO[facility] [address] SALOMÓN WATKINS. [id number] AGE SEX SSN CLIENT REF # [facility] 1990 F [id number] [address] [facility] [id number] REQUESTING Sammie. [place] [address] DIMAS CHARLES DATE COLLECTED DATE RECEIVED DATE REPORTED 10/06/2024 10/06/2024 10/07/2024 ThinPrep Pap with Votig[employer] Genius [facility] DIAGNOSIS: Negative for intraepithelial lesion or malignancy Multiple factors can influence accuracy of Pap tests; therefore, screening at regular intervals is necessary for early cancer detection. SPECIMEN ADEQUACY: SATISFACTORY FOR EVALUATION Transformation zone is present. SOURCE OF SPECIMEN: CERVICAL SLIDES: 1 CLINICAL HISTORY: Women's annual routine gynecological examination Abnormal uterine bleeding PTA: PATO PANDEY (ASCP) CPT CODES: 09602 10/07/2024 8:55 AM EDT [facility] ThinPrep Vial Cervix uteri structure / Unknown Collection / Unknown 10/06/2024 4:43 PM EDT 10/06/2024 4:43 PM EDT us Dimas Charles MD PATHOLOGY/CYTOLOGY ORDERABLES F inal Result [facility]
[address] [place] [address], * US Non-ob Transvaginal (10/06/2024 10:23 AM EDT) Anatomical Region Laterality Modality Body Ultrasound 10/06/2024 10:0 6 AM EDT Narrative 10/06/2024 7:10 PM EDT PAT NAME: SALOMÓN WATKINS [facility] REC#: [id number] DA: 1990 PAT GEND: F PAT TYPE: O EXAM IAN: [id number] REF PHYS DIMAS CHARLES Indication ======== AUB Comparison Studies There [...] left ovary. Recommendation Follow-up as clinically indicated. Woodwork Salvage Inspector: Shona Marcial RDMS Physician: Dimas Charles II, MD, FACOG Electronically signed by: Dimas Charles II, MD, FACOG at: 19:10 Procedure Note Dimas Charles MD - 10/06/2024 PAT NAME: SALOMÓN WATKINS MED REC#: [id number] DA: 1990 PAT GEND: F PAT TYPE: O EXAM IAN: [id number] REF PHYS DIMAS CHARLES Indication ======== AUB Comparison Studies There are no relevant prior studies to which this study is beingcompared History ====== Previous Outcomes Gravida1 Para0 Method ======= [place]on E6, Transvaginal ultrasound examination, 3D ultrasoundexamination. View: Adequate view Uterus ====== Uterus:Visualized Uterus position:Anteverted Description of uterine malformations:none Myometrium:Homogeneous Endometrium:Uniform Cervix details:Normal Uterus llko373 mm Uterus ap75 mm Uterus tr70 mm Uterus Gbe516.8 cm Endometrial thickness, total3.9 mm Uterine fibroid [...] left ovary. Recommendation Follow-up as clinically indicated. Woodwork Salvage Inspector: Shona Marcial RDNM Physician: Dimas Charles II, MD, FACOG Electronically signed by: Dimas Charles II, MD, FACOG at: 2519:10 Dimas Charles MD [facility] ORDERABLES Final Result from Last 3 Months Insurance [employer] [facility] PPO Care Teams Computer Tech Relationship Specialty Start Date End Date Evan East MD [address] [place] [address] [place] [address] PCP - General Family Medicine 11/16/23
--- OUTSIDE RECORDS SUMMARY | 2024-11-17 08:41 | XMS_ITS | Encounter Summary ---
Author Organization [facility] Address [address] [place] [address] Care Team Providers Care Navy Seal Name Role Phone Evan East MD Primary Care Provider [phone]- [phone] Encounter Details Date Type Department Care Team (Latest Contact Info) Description 10/06/2024 Travel Social History Tobacco Use Types Packs/Day Years [...] Description 05/25/2025 10:30 AM EDT Ancillary Procedure [facility] [address] [facility] [address] [place] [phone] 05/25/2025 10:50 AM EDT Office Visit [facility] [address] [facility] [address] [place] [address] Matt Murphy MD [address] [facility] [address] [place] [phone] documented as of this encounter Visit Diagnoses Not on filedocumented in this encounter Care Teams Navy Seal Relationship Specialty Start Date End Date Evan East MD [address] [place] [address] [place] [address] PCP - General Family Medicine 11/16/23 documented as of this encounter
--- OUTSIDE RECORDS SUMMARY | 2024-11-17 08:41 | XMS_ITS | Clinical Summary ---
Author Organization [facility] Address [address] [place] [address] Care Team Providers Care Consumer Relations Complaint Clerk Name Role Phone Kassie Beltran Primary Care Provider Un available Allergies Active Allergy Reactions Criticality Noted Date Comments Codeine Unknown - Patient st ates they do not know rxn details Low 05/23/2018 Pt states she doesn't recall. Childhood allergy. Medications albuterol 108 (90 Base) MCG/ACT inhaler Inhale 2 puffs. Active hydroxychloroqui ne (Plaquenil) 200 MG tablet Take by mouth 1 (one) time each day. 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 01/05/2017 Other forms of systemic lupus erythematosus 12/14 Positive antinuclear antibody 01/05/2017 Immunizations Immunization Administration Dates Next Due Influenza, injectable, MDCK, preservative free, quadrivalent 06/04/2020 Tdap 06/04/2020 Social History Tobacco Use Types Packs/Day Years Used Date Smoking Tobacco: Never Smokeless Tobacco: Never Tobacco Cessation:Counseling Given: Not Answered Comments Unknown Sex and Gender Information Value Date Recorded Sex Assigned at Not on file Legal Sex Female 6:41 PM EDT Gender Identity Not on file Sexual Orientation Not on file Last Filed Vital Signs Vital Sign Reading Time Taken Comments Blood Pressure 114/76 02/10/2024 10:28 AM EST Pulse 85 02/10/2024 10:28 AM EST Temperature 36.6 C (97.8 F) 02/10/2024 6:27 AM EST Respiratory Rate 20 02/10/2024 10:28 AM EST Oxygen Saturation 98% 02/10/2024 10:28 AM EST Inhaled Oxygen Concentration - - Weight 104 kg (230 lb) 02/10/2024 6:46 AM EST Height 154.9 cm (5' 1 ) 02/10/2024 6:46 AM EST Body Mass Index 43.46 02/10/2024 6:46 AM EST Plan of Treatment Health Maintenance Due Date Last Done Comments [facility]-Depression Screening 1990 [facility]-Infant/Child/Adol SDOH Screenings 1990 [facility]-Varicella Vaccines (1 of 2 - 13+ 2-dose series) 2002 [facility]- SDOH Screenings 11/05/2007 [facility]-Adult SDOH Screenings 11/05/2007 [facility]-Hepatitis B Vaccines (1 of 3 - 19+ 3-dose series) 2008 HPV Vaccines (1 - 3-dose SCD M series) 2016 [facility]-HPV/Cotest 11/05/2019 [id number]-[id number]-17 Vaccine (1 - 2023- season) 2023 [facility]-Influenza Vaccine (#1) 11/13/202406/04, 12/18/2019 [facility]-Cervical Cancer Screening 06/17/2025 [facility]-Pap Smear 06/17/2025 06/17/2022 [facility]-DTaP,Tdap,and Td Vaccine s (2 - Td or Tdap) 06/04/2030 06/04/2020 [facility]-Zoster Vaccines (1 of 2) 11/05/2039 [facility]-Obesity Intervention Completed 023, 06/17/2022 [facility]-HIV Screening Completed 02/10/2024 [facility]-Hepatitis C Screening Completed 02/10/2024 [facility]-HIB Vaccines Aged Out No longer e ligible based on patient's age to complete this topic [facility]-Hepatitis A Vaccines Aged Out No longer eligible based on patient's age to complete this topic [facility]-IPV Vaccines Aged Out No longer e ligible based on patient's age to complete this topic [facility]-Pneumococcal Vaccine: Pediatrics (0 to 5 Years) and At-Risk Patients (6 to 49 Years) Aged Out No longer eligible b ased on patient's age to complete this topic [facility]-Rotavirus Vaccines Aged Out No lo nger eligible based on patient's age to complete this topic Procedures Procedure Name Priority Date/Time Associated Diagnosis Comments HEPATITIS C ANTIBODY - ED W/REFLEX TO HCV QUANT PCR STAT 02/10/2024 6:45 AM EST ED HIV 1/2 ANTIBODY/ANTIGEN SCREEN WITH REFLEX TO HIV I/II DIFFERENTIATION STAT 02/10/2024 6:45 AM EST from Last 3 Months or Most Recently Relevant to Health Maintenance Results * ED HIV 1/2 Antibody/Antigen Screen w/Reflex to HIV 1/2 Differentiation (02/10/2024 6:45 AM EST) HIV 1 & 2 Antibody/Antigen Screen Non Reactive Non Reactive 02/10/2024 7:49 AM EST [facility] Comment:Screening for HIV 1 & 2 antibodies, and P24 antigen is NONREACTIVE. No confirmatory testing is required. Blood Venous blood specimen / Unknown Venipuncture / Unknown 02/10/2024 6:45 AM EST 02/10/2024 6:58 AM EST us Ehsan Escobar MD LAB BLOOD ORDERABLES Final Resu lt [facility] [address] [place] [address] * Hepatitis C Antibody - ED (02/10/2024 6:45 AM EST) Hepatitis C Antibody Negative Negative 02/10/2024 7:49 AM EST [facility] Blood Venous blood specimen / Unknown Venipuncture / Unknown 02/10/2024 6:45 AM EST 02/10/2024 6:58 AM EST us Ehsan Escobar MD LAB BLOOD ORDERABLES Final Resu lt Performing Organization Address City/[facility] Co de Phone Number [facility] [address] [place] [address] from Last 3 Months or Most Recently Relevant to Health Maintenance Care Teams Consumer Relations Complaint Clerk Relationship Specialty Start Date End Date Kassie Beltran [address] [place] [address] PCP - General 01/06/23
[2024-11-17 09:14] LABS: Hepatitis B Surface Antigen Negative (Negative)
== END 2024-11-15 23:59 ==
LOC: LAB.DROPOF 11-17 08:26
PROVIDERS: PCP Family Medicine; Visit Provider Family Medicine
DX: E06.3 Autoimmune thyroiditis (principal); I10 Essential (primary) hypertension; E66.9 Obesity, unspecified; Z86.2 Personal history of diseases of the blood and blood-forming organs and certain disorders involving the immune mechanism; Z11.4 Encounter for screening for human immunodeficiency virus [HIV]; Z11.59 Encounter for screening for other viral diseases
CPT/HCPCS: 80053; 80061; 83036; 83540; 83550; 84436; 84443; 84479; 85025; 86803; 87340; 87389

== ENCOUNTER 2025-03-05 10:14 | Outpatient (CLI) | payer BC, SELFPAY ==
[2025-03-05 19:22] LABS: Hematocrit 37.2 % (37.0-47.0); Hemoglobin 11.2 g/dL (12.2-16.2); Immature Granulocytes % 0.6 %; Mean Corpuscular HGB Conc 30.1 g/dL (31.8-35.4); Mean Corpuscular Hemoglobin 21.9 pg (27.0-31.2); Mean Corpuscular Volume 72.7 fl (81-99); Nucleated Red Blood Cells % 0 %; Platelet Count 329 K/mm3 (142-424); Red Blood Count 5.12 M/mm3 (4.20-5.40); Red Cell Distribution Width-SD 45.1 fL; White Blood Count 9.0 K/mm3 (4.8-10.8)
[2025-03-05 19:59] LABS: Albumin Level 4.3 g/dl (3.5-5.0)
[2025-03-05 20:00] LABS: Chloride 104 mmol/L (98-107); Potassium 4.4 mmoL/L (3.5-5.1); Sodium 139 mmol/L (136-145)
[2025-03-05 20:02] LABS: Alanine Aminotransferase 17 U/L (12-78); Anion Gap 15.4 mEq/L (5-15); Aspartate Amino Transferase 21 U/L (14-36); Blood Urea Nitrogen 14 mg/dl (7-17); Carbon Dioxide 24 mmol/L (22.0-30.0); Creatinine,Serum 0.80 mg/dl (0.52-1.04); Estimated Glomerular Filt Rate 82 ml/min (>60); GFR (African American) 99 ML/MIN (>60)
[2025-03-05 20:03] LABS: Albumin/Globulin Ratio 1.7 (1.1-1.8); Alkaline Phosphatase 118 U/L (38-126); Bilirubin,Total 0.4 mg/dl (0.2-1.3); Calcium 9.3 mg/dl (8.4-10.2); Cholesterol 148 mg/dl (140-200); Globulin 2.5 g/dL (1.3-3.2); HDL Cholesterol 34 mg/dl (40-60); Total Protein,Serum 6.8 g/dl (6.3-8.2); Triglycerides 135 mg/dl (30-150)
[2025-03-05 20:22] LABS: Glucose 48 mg/dl (74-100)
[2025-03-05 20:35] LABS: Thyroid Stimulating Hormone 1.21 uIU/mL (0.465-4.68)
--- OUTSIDE RECORDS SUMMARY | 2025-03-06 12:10 | XMS_ITS | Clinical Summary ---
Author Organization [facility] Address [address] [place] [address] Care Team Providers Care Rn Circulating Name Role Phone Evan East MD Primary Care Provider [phone] Allergies Active Allergy Reactions Criticality Noted Date [...] On levothyroxine and currently stable Anemia 10/04/2023 ELYSIA positive 10/04/2023 Assessment & Plan (11/11/2023 10:33 [...] lupus and ra run in her family +ELYSIA, +LA, +SSA oral ulcers, arthritis, malar rash neg elysia by ifa Inflammatory arthritis since 2007; Current: [...] morbid obesity, antepartum 07/07/2018 Previous section 07/07/2018 Immunizations Immunization Administration Dates Next Due Influenza, [...] Care Team (Late st Contact Info) Description 05/24/2025 9:45 AM EDT Office Visit [facility] RHEUMATOLOGY [address] [phone] Russel Finn, DISTRIBUTOR PUBLICATIONS [address] [address] Health Maintenance Due Date Last Done Comments ANNUAL PHYSICAL 07/07/2018 INFLUENZA VACCINE 10/13/2024 06/04/2020, 12/18/2019 Annual Gynecologic Pelvic an d [...] PM EDT Women's annual routine gynecological examination from Last 3 Months or Most Recently Relevant to Health Maintenance Results * LIQUID-BASED PAP SMEAR WITH HPV GENOTYPING IF ASCUS (JORGE,COR,MAD) (10/06/2024 4:43 PM EDT) Reference Lab Report [facility] [address] [place] [address] or [phone] Sachin Mcintyre M.D., Abstract Manager PATIENT NAME LABORATORY [address] KATERINA WATKINS. [id number] AGE SEX SSN CLIENT REF # [facility] 33 1990 F [id number] REQUESTING MVivien [place] [address] MATT CHARLES DATE COLLECTED DATE RECEIVED DATE REPORTED 10/06/2024 10/06/2024 10/07/2024 ThinPrep Pap with Pin or Peggic Genius Imaging DIAGNOSIS: Negative for intraepithelial lesion or malignancy Multiple factors can influence accuracy of Pap tests; therefore, screening at regular intervals is necessary for early cancer detection. SPECIMEN ADEQUACY: SATISFACTORY FOR EVALUATION Transformation zone is present. SOURCE OF SPECIMEN: CERVICAL SLIDES: 1 CLINICAL HISTORY: Women's annual routine gynecological examination Abnormal uterine bleeding GUM ROLLING MACHINE OPERATOR: PATO PANDEY (ASCP) CPT CODES: [id number] 10/07/2024 8:55 AM EDT [facility] ThinPrep Vial Cervix uteri structure / Unknown Collection / Unknown 10/06/2024 4:43 PM EDT 10/06/2024 4:43 PM EDT us Matt Charles MD PATHOLOGY/CYTOLOGY ORDERABLES F inal Result [facility]
[address] [place] [address], from Last 3 Months or Most Recently Relevant to Health Maintenance Insurance [employer] PPO [employer] P[employer] Care Teams Rn Circulating Relationship Specialty Start Date End Date Evan East MD [address] [place] [address] PCP - General Family Medicine 11/16/23
--- OUTSIDE RECORDS SUMMARY | 2025-03-06 12:10 | XMS_ITS | Encounter Summary ---
Author Organization [facility] Address [address] 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
--- OUTSIDE RECORDS SUMMARY | 2025-03-06 12:10 | XMS_ITS | Clinical Summary ---
Author Organization [facility] Address [address] 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 Other forms of systemic lupus erythematosus 12/14 Positive antinuclear antibody 01/05/2017 Resolved Problems Problem Noted Date Diagnosed Date Resolved Date Exposure to COVID-19 virus 01/06/2023 01/06/2023 0 12/03/2024 Pharyngitis 01/06/2023 01/06/2023 12/03/2024 Sinusitis 01/06/2023 01/06/2023 12/03/2024 Other fatigue 06/17/2022 12/03/2024 Snores 06/17/2022 12/03/2024 Immunizations Immunization Administration Dates Next Due Influenza, [...] Date Last Done Comments [facility]-Depression Screening 1989 [facility]-/Child/Adol SDOH Screenings 1989 [facility]-Varicella Vaccines (1 of 2 - 13+ 2-dose series) 2002 [facility]- SDOH Screenings 11/05/2007 [facility]-Adult SDOH Screenings 11/05/2007 [facility]-Hepatitis B Vaccines (1 of 3 - 19+ 3-dose series) 2008 [facility]-HPV/Cotest 11/05/2019 [id number] Vaccine (1 - 2024- season) 2024 [facility]-Influenza Vaccine (#1) 11/13/202406/04, 12/18/2019 [facility]-Cervical Cancer Screening 06/17/2025 [facility]-Pap Smear 06/17/2025 06/17/2022 [facility]-DTaP,Tdap,and Td Vaccine s (2 - Td or Tdap) 06/04/2030 06/04/2020 [facility]-Zoster Vaccines (1 of 2) 11/05/2039 [facility]-Obesity Intervention Completed 023, 06/17/2022 [facility]-HIV Screening Completed 02/10/2024 [facility]-Hepatitis C Screening Completed 02/10/2024 HPV Vaccines (No Doses Required) Completed [facility]-HIB Vaccines Aged Out No longer e [...] Reactive Non Reactive 02/10/2024 7:49 AM EST [facility] Comment:Screening for HIV 1 & 2 antibodies, and P24 antigen is NONREACTIVE. No confirmatory testing is required. Blood Venous blood specimen / Unknown Venipuncture / Unknown 02/10/2024 6:45 AM EST 02/10/2024 6:58 AM EST us Ehsan Escobar MD LAB BLOOD ORDERABLES Final Resu lt [facility] [address] [place] [address] * Hepatitis C Antibody - ED (02/10/2024 6:45 AM EST) Hepatitis C Antibody Negative Negative 02/10/2024 7:49 AM EST [facility] Blood Venous blood specimen / Unknown Venipuncture / Unknown 02/10/2024 6:45 AM EST 02/10/2024 6:58 AM EST us Ehsan Escobar MD LAB BLOOD ORDERABLES Final Resu lt Performing Organization Address City/[facility]/ZIP Co de Phone Number [facility] [address] [place] [address] from Last 3 Months or Most Recently Relevant to Health Maintenance Care Teams Mental Health Counselor Relationship Specialty Start Date End Date Kassie Beltran [address] [place] [address] PCP - General 01/06/23
== END 2025-03-05 23:59 | disposition home or self-care (01) ==
LOC: LAB.DROPOF 03-06 12:08
PROVIDERS: PCP Family Medicine; Visit Provider Family Medicine
DX: D50.9 Iron deficiency anemia, unspecified (principal); E03.9 Hypothyroidism, unspecified; E78.5 Hyperlipidemia, unspecified; M32.9 Systemic lupus erythematosus, unspecified
CPT/HCPCS: 80053; 80061; 84443; 85025